=== PATIENT | female | born 1965 | race Caucasian/White ===

== ENCOUNTER 2019-04-09 01:58 | Emergency (ER) | payer OTHER, SELFPAY ==
[2019-04-09 01:59] VITALS: BP 220/109; PULSE 96; RESP 16; TEMP 36.3; O2SAT 100; BMI 30.4
[2019-04-09 02:02] VITALS: BP 208/118
--- NOTE | 2019-04-09 02:24 | CT_ITS ---
STUDY: CT BRAIN WITHOUT CONTRAST REASON FOR EXAM: Female, 53 years old. Headache, history of diabetes and migraine headaches. RADIATION DOSAGE (If Supplied By Facility): CTDIvol = ( 44.99 ) mGy, DLP = ( 796.11 ) mGycm TECHNIQUE: Transaxial CT imaging of the brain was performed without administration of intravenous contrast material. Individualized dose optimization techniques were used for this CT. COMPARISON: No relevant priors. FINDINGS: Normal soft tissue structures. Normal calvarium. Normal size ventricles and extra-axial spaces for the patient's age. Normal white matter tracts of the cerebral hemispheres. Normal basal ganglia and thalami. Normal brainstem. Normal cerebellum. There is no intracranial hemorrhage. There are no findings of an acute ischemic infarction. Normal visualized paranasal sinuses. CT/Brain/Head without Contrast IMPRESSION: Normal unenhanced CT scan of the brain. Specifically, no acute intracranial hemorrhage or space-occupying lesion. Electronically Signed: Sarahy Agudelo MD at 3:09 EST , Service support ,
--- NOTE | 2019-04-09 02:25 | ED.VIS.HA ---
History of Present Illness Chief Complaint: Headache Informant: Patient, Family Onset: Today Context: Sudden Timing: Continuous Quality: Similar Prior Headaches, Throbbing Current Severity: Severe Maximum Severity: Severe Associated Symptoms: Nausea, Blurred Vision, Photophobia. Negative for: Numbness, Tingling, Preceding Aura, Visual Loss Narrative: Patient is a 53-year-old female with history of migraine headaches and acid reflux presenting with headache. Patient states her headache started about an hour prior to arrival. She states that came on suddenly and hit her like a ton of bricks. She did not have her typical preceding aura. She had a similar migraine 2 days ago. Patient states she normally has a migraine every month or every other month. She took ibuprofen without any relief of her symptoms. She describes the pain as pounding and pressure in her head. She has associated light sensitivity but no vision changes. She denies any vomiting. She did have an episode of vomiting with her headache 2 days ago. She denies any chest pain, shortness of breath or difficulty breathing. She denies any fever or chills. She does have some neck pain associated with it. She denies any upper respiratory symptoms Patient states 10 days ago she was in [facility]. When she was there she had an exacerbation of her reflux. She states the pain was so bad at one point she passed out. She did not get this evaluated further. Patient states she had a similar episode about a year ago. She has not seen her primary care doctor in the last few months. She denies any other complaints at this time. Prior similar symptoms: Yes Recent Illness/Hospitalization: No Past Medical History - Allergies and Home Meds Allergies/Adverse Reactions: Allergies No Known Allergies Allergy (Verified 04/09/19 02:01) Primary Care Physician: Apanra Hartman MD [Primary Care Provider] - Past Medical History: - - GERD, diabetes, hyperlipidemia Surgical History: - - C-sections ?2 Lives: Spouse/ Significant Other Smoking Status: Current every day smoker - Family History Maternal Family History: Reports: No pertinent history Paternal Family History: Reports: No pertinent history Review of Systems General: Denies: Chills, Fever, Sweats Eyes: Denies: Visual changes - bilaterally, Diplopia ENT: Denies: Rhinorrhea, Sore throat Cardiovascular: Denies: Chest pain, Palpitations Respiratory: Denies: Dyspnea, Cough, Dyspnea on exertion Gastrointestinal: Reports: Nausea. Denies: Abdominal pain, Vomiting, Diarrhea, Melena, Hematochezia Genitourinary: Denies: Dysuria, Hematuria, Frequency Musculoskeletal: Reports: Neck pain. Denies: Back pain, Extremity Pain Skin: Denies: Rash, Wounds Neurological: Reports: Headache. Denies: Weakness, Numbness Physical Exam Vital Signs/Narrative: Vital Signs Temp Pulse Resp BP Pulse Ox 04/09/19 02:02 208/118 H 04/09/19 01:59 97.3 F L 96 16 220/109 H 100 Inital Vital Signs reviewed: Yes General: Well nourished, Well developed Head: NC, AT Eyes: Perrl, EOMI ENT: Moist mucous membranes, No rhinorrhea, TM's clear. Negative for: Nasal congestion, Sinus tenderness Neck: Supple, No Lymphadenopathy, No JVD, Nontender, No Meningismus, Paraspinal Tenderness - Bilateral Cardiovascular: Regular rate, Regular rhythm, No murmurs Respiratory: No distress, CTA bilaterally, Chest nontender Abdomen: Soft, Nontender, Nondistended, Normal bowel sounds Back: Nontender, Normal Inspection Extremities: Nontender, No edema Skin: Normal color, No rash Neuro: Alert, Oriented x3, Cranial nerves II-XII grossly intact, Normal Strength, Normal Sensation, Normal DTR, Normal Gait. Negative for: Abnormal Gait Psychological: Normal affect Diagnostic/Tx/Re-eval Clinical Impression(s) from Imaging Studies Brain CT 04/09/19 02:24 IMPRESSION: Normal unenhanced CT scan of the brain. Specifically, no acute intracranial hemorrhage or space-occupying lesion. Electronically Signed: Sarahy Agudelo MD at 3:09 EST , Service support , Laboratory Data 04/09/19 04/09/19 02:35 02:35 WBC 10.0 RBC 5.11 Hgb 16.3 H Hct 47.1 H MCV 92.2 MCH 31.9 MCHC 34.6 RDW Std Deviation 39.9 RDW Coeff of Reyes 11.8 Plt Count 273 MPV 9.6 Immature Gran % (Auto) 0.300 Neut % (Auto) 48.2 Lymph % (Auto) 41.5 H [place] % (Auto) 6.9 Eos % (Auto) 2.6 Baso % (Auto) 0.5 Absolute Neuts (auto) 4.8 Absolute Lymphs (auto) 4.13 Nucleated RBC % 0 Sodium 137 Potassium 3.4 L Chloride 104 Carbon Dioxide 23.0 Anion Gap 10 BUN 21 H Creatinine 0.73 Estim Creat Clear Calc 85.35 Est GFR (MDRD) Af Amer 109 Est GFR (MDRD) Non-Af 90 BUN/Creatinine Ratio 28.9 H Glucose 246 H Calcium 9.4 Total Bilirubin 0.30 AST 8 L ALT 29 Alkaline Phosphatase 79 Troponin I < 0.015 Total Protein 7.5 Albumin 4.0 Globulin 3.5 Albumin/Globulin Ratio 1.1 Lipase 215 - Medical Decision Making Patient is evaluated for headache. She appears nontoxic and in no acute distress. She does appear uncomfortable secondary to her headache. Patient is a normal neurologic exam. She does not have meningeal signs. Patient is initially given Compazine and Benadryl and fluids for her symptoms. CT of the brain is obtained as patient had sudden onset of her headache and did not have a classic aura. This is negative for any acute bleed or other acute intracranial process. Because her symptoms started an hour before arrival I do not think further LP is indicated to rule out subarachnoid hemorrhage. Patient was then given Toradol and another liter fluid after her CT is read as negative. Patient 10 days ago did have an episode of epigastric pain rating to her chest and feeling that she might pass out. Because of this I did check some baseline labs including troponin, CMP, lipase and CBC.CBC grossly normal. Patient is slightly hemoconcentrated. CMP remarkable for hyperglycemia with a glucose of 246. Patient has a normal anion gap. Troponin is normal. Normal lipase and normal liver enzymes. On reevaluation patient is significantly improved. Her blood pressure comes down slightly. She does not have JAQUELIN or physical exam findings consistent with hypertensive emergency. Patient was plan on following up with her primary care doctor so she will not be started on antihypertensives right now. She is counseled that she needs to discuss this with her PCP as she likely might need them in the near future. Patient is counseled on signs and symptoms requiring return to the emergency room. Patient verbalizes agreement and understand this plan. Patient discharged home in stable and improved condition. ED Disposition - Plan for ED Patient: Disposition: Home or Assisted Living Diagnosis: Headache, Hypertension Instructions: HEADACHE, Unspecified Referrals: Aparna Hartman MD [Primary Care Provider] - Additional Instructions: Please follow-up with your primary care doctor. Please discuss your elevated blood pressure as well as the increased frequency of your headaches. Continue to use heat for your neck. You can take either ibuprofen or Tylenol as needed for your headaches. Return to emergency room if you have worsening symptoms.
[2019-04-09] MEDS: DiphenhydrAMINE 50 MG/ML Syringe IV (02:39)
[2019-04-09] MEDS: proCHLORPERazine 10 MG/2 ML Vial IV (02:39)
[2019-04-09] MEDS: 0.9% Normal Saline 1,000 ML 999 ML IV (02:40)
[2019-04-09] MEDS: 0.9% Normal Saline 1,000 ML 1000 ML IV (02:40)
[2019-04-09 02:46] LABS: Absolute Lymphocyte Count 4.13 X10^3/uL (0.83-4.51); Absolute Neutrophil Count 4.8 X10^3/uL (2.0-7.7); Basophil# 0.05 X10^3/uL; Basophil% 0.5 % (0-1); Eosinophil# 0.26 X10^3/uL; Eosinophils% 2.6 % (0-5); Hematocrit 47.1 % (37-47); Hemoglobin 16.3 g/dL (12.0-15.0); Lymphocyte # 4.13 X10^3/ul (4.0); Lymphocyte % 41.5 % (19-41); Mean Corp Hgb Conc 34.6 g/dL (32-36); Mean Corpuscular Hgb 31.9 pg (27.0-32.0); Mean Corpuscular Volume 92.2 fL (81-99); Mean Platelet Vol. 9.6 fl (6.2-12.0); Monocyte# 0.69 X10^3/uL; Monocyte% 6.9 % (0-10); NRBC Flagged by Analyzer 0 % (0-5); Neutrophil % 48.2 % (47-70); Platelet Count 273 K/mm3 (150-450); RBC Distribution Width CV 11.8 % (11.6-14.6); RBC Distribution Width SD 39.9 fl (35.1-43.9); Red Blood Count 5.11 M/mm3 (4.2-5.4)
[2019-04-09 03:05] LABS: ALB/GLOB Ratio 1.1 RATIO (0.9-2.4); AST(SGOT) 8 U/L (15-37); Alanine Aminotransfer ALT/SGPT 29 U/L (13-56); Alkaline Phosphatase 79 U/L (45-117); Anion Gap 10 (5-15); BUN 21 mg/dL (7-18); BUN/Creat Ratio 28.9 RATIO (10-20); Calcium,Total 9.4 mg/dL (8.5-10.1); Chloride 104 mmol/L (98-107); Creatinine, Serum 0.73 mg/dL (0.55-1.02); EST Glomerular Filtration Rate 90 mL/min (>60); Est Glom Filt Rate - Afr Amer 109 mL/min (>60); Estimated Creatinine Clearance 85.35 ml/min; Globulin 3.5 g/dL (2.2-4.2); Glucose 246 mg/dL (74-106); Lipase 215 U/L (73-393); Potassium 3.4 mmol/L (3.5-5.1); Protein, Total 7.5 g/dL (6.4-8.2); Sodium Level 137 mmol/L (136-145)
[2019-04-09] MEDS: Ketorolac 15 MG/ML Vial IV (03:23)
[2019-04-09 03:58] VITALS: BP 195/97; PULSE 64; RESP 16; O2SAT 98
[2019-04-09 04:56] VITALS: BP 174/95; RESP 16
== END 2019-04-09 04:57 | disposition home or self-care (01) ==
PROVIDERS: Emergency Provider Emergency Medicine; Family Provider Internal Medicine; PCP Internal Medicine
DX: R51 Headache (principal); I10 Essential (primary) hypertension; E11.9 Type 2 diabetes mellitus without complications; K21.9 Gastro-esophageal reflux disease without esophagitis; E78.5 Hyperlipidemia, unspecified; F17.200 Nicotine dependence, unspecified, uncomplicated
CPT/HCPCS: 70450; 80053; 83690; 84484; 85025; 96361; 96374; 96375; 99283; J7030; A4216

== ENCOUNTER 2019-04-09 23:17 | Emergency (ER) | payer OTHER, SELFPAY ==
[2019-04-09 01:59] VITALS: BMI 30.4
[2019-04-09 23:18] VITALS: BP 207/111; PULSE 90; RESP 16; TEMP 36.8; O2SAT 100; BMI 29.5
--- NOTE | 2019-04-09 23:45 | ED.VIS.GEN ---
History of Present Illness Chief Complaint: Headache Informant: Patient Narrative: Stated she has a history of migraine headaches. They can be a couple times a month or they can be every few months. She is never seen a specialist. She came in the emergency department yesterday and had lab work and a CAT scan of her head for a migraine headache. She was treated for it with IV treatments. She stated her headache almost completely resolved. She went home and slept throughout the morning yesterday. She woke up this afternoon with a very mild limit lingering headache. This evening slowly started to increase in severity now she has a significant throbbing migraine headache again per patient. She has a frontal headache. She has some tightness in the back of her head as well in her upper neck. She has some mild nausea. No visual difficulties. Been trying Tylenol and ibuprofen today with minimal relief. Patient does have a history of elevated blood pressures on her last visit to her doctor 160 systolic however she does not have a history of hypertension. Yesterday she had a blood pressure of 200 systolic. This was monitored. She was discharged home and does not take blood pressure medication at this time. - Past Medical History (1) Chest pain Status: Acute (2) Headache Status: Inactive (3) Diabetes mellitus, type II Status: Chronic (4) Hiatal hernia Status: Chronic (5) Hyperlipidemia Status: Chronic (6) Hypertension Status: Inactive (7) Nicotine addiction Status: Chronic (8) Obesity (BMI 30.0-34.9) Status: Chronic (9) Gastroesophageal reflux disease Status: Suspected Past Medical History - Allergies and Home Meds Allergies/Adverse Reactions: Allergies No Known Allergies Allergy (Verified 04/09/19 23:21) Primary Care Physician: Aparna Hartman MD [Primary Care Provider] - Prior records reviewed: Yes Past Medical History: - - See problem list Surgical History: - - C-sections ?2 Lives: With Family Smoking Status: Current every day smoker Alcohol: None Drugs: None - Family History Maternal Family History: Reports: No pertinent history Paternal Family History: Reports: No pertinent history Review of Systems General: Denies: Chills, Fever, Sweats Eyes: Denies: Visual changes - bilaterally, Diplopia ENT: Denies: Rhinorrhea, Sore throat Cardiovascular: Denies: Chest pain, Palpitations Respiratory: Denies: Dyspnea, Cough, Dyspnea on exertion Gastrointestinal: Reports: Nausea. Denies: Abdominal pain, Vomiting, Diarrhea, Melena, Hematochezia Genitourinary: Denies: Dysuria, Hematuria, Frequency Musculoskeletal: Denies: Back pain, Extremity Pain Skin: Denies: Rash, Wounds Neurological: Reports: Headache. Denies: Weakness, Numbness Physical Exam Vital Signs/Narrative: Vital Signs Temp Pulse Resp BP Pulse Ox 04/09/19 23:18 98.3 F 90 16 207/111 H 100 General: Well nourished, Well developed, No Acute Distress Head: Normocephalic, Atraumatic Eyes: Perrl, EOMI ENT: Moist mucous membranes, No rhinorrhea Neck: Supple, Nontender Cardiovascular: Regular rate, Regular rhythm, No murmurs Respiratory: No distress, CTA bilaterally, Chest nontender Abdomen: Soft, Nontender, Nondistended, Normal bowel sounds Back: Nontender, Normal Inspection Extremities: Nontender, No edema Skin: Normal color, No rash Neurological: Alert, Oriented x3, Cranial nerves II-XII grossly intact, Normal Strength, Normal Sensation Psychological: Normal affect, Normal Mood Diagnostic/Tx/Re-eval - Medical Decision Making IV established and given IV fluids, Compazine, Toradol, Benadryl. Blood pressure monitored. On reevaluation the patient's headache is completely resolved resting comfortably. Blood pressure down to 130/80. At this time she will be given a prescription for Imitrex for home. She will follow-up with her family doctor and return if she worsens. I do not feel she needs repeat CT of her head. On think she has intracranial hemorrhage or subarachnoid hemorrhage. I feel she is has a repeat migraine. ED Disposition - Plan for ED Patient: Disposition: Home or Assisted Living Diagnosis: Migraine headache Instructions: ED, Migraine (Classical) Prescriptions: Sumatriptan Succinate [Imitrex] 50 - 100 mg PO .X1 PRN #15 tab Prescription Printed Referrals: Aparna Hartman MD [Primary Care Provider] -
[2019-04-09] MEDS: DiphenhydrAMINE 50 MG/ML Syringe IV (23:58)
[2019-04-09] MEDS: Ketorolac 30 MG/ML Syringe IV (23:59)
[2019-04-09] MEDS: proCHLORPERazine 10 MG/2 ML Vial IV (23:59)
[2019-04-10] MEDS: 0.9% Normal Saline 1,000 ML 999 ML IV (00:05)
[2019-04-10 00:11] VITALS: BP 162/97; PULSE 73; RESP 11; O2SAT 99
[2019-04-10 01:50] VITALS: BP 127/84; PULSE 65; RESP 20; O2SAT 96
== END 2019-04-10 02:28 | disposition home or self-care (01) ==
PROVIDERS: Emergency Provider Emergency Medicine; Family Provider Internal Medicine; PCP Internal Medicine
DX: G43.909 Migraine, unspecified, not intractable, without status migrainosus (principal); E11.9 Type 2 diabetes mellitus without complications; E66.9 Obesity, unspecified; E78.5 Hyperlipidemia, unspecified; K21.9 Gastro-esophageal reflux disease without esophagitis; K44.9 Diaphragmatic hernia without obstruction or gangrene; I10 Essential (primary) hypertension; F17.200 Nicotine dependence, unspecified, uncomplicated
CPT/HCPCS: 99285; J7030; A4216

== ENCOUNTER 2019-04-12 09:51 | Emergency (ER) | payer OTHER, SELFPAY ==
[2019-04-12 09:52] VITALS: BP 187/125; PULSE 93; RESP 15; TEMP 36.2; O2SAT 97; BMI 29.8
[2019-04-12] MEDS: Ketorolac 15 MG/ML Vial IV (10:34)
[2019-04-12] MEDS: DiphenhydrAMINE 50 MG/ML Syringe IV (10:34)
[2019-04-12] MEDS: 0.9% Normal Saline 1,000 ML 1000 ML IV (10:34)
[2019-04-12] MEDS: proCHLORPERazine 10 MG/2 ML Vial IV (10:34)
--- NOTE | 2019-04-12 10:35 | ED.VIS.GEN ---
History of Present Illness Informant: Patient, Significant Other Onset: Days - 3 days Context: Gradual Onset Timing: Continuous Quality: Throbbing Location: Front of the head Current Severity: Severe Maximum Severity: Severe Worsened by: Nothing Relieved by: nothing Associated Symptoms: Nausea Narrative: 53-year-old female history of type 2 diabetes on metformin and hyperlipidemia presents to the emergency department with headache. This is the patient's third visit to the emergency department in the last 3 days. Initially was seen in the emergency department for headache. Had a CT scan that was negative. Given a migraine cocktail. Was nearly started on antihypertensive but after being treated for her migraine blood pressure normalized and was discharged home without antihypertensives. She had her second visit a couple days ago and similar situation where initially her blood pressure was elevated on arrival and after treatment of her headache she felt better her blood pressure remained normal after treatment and she was discharged. She was then discharged after her second visit with Imitrex. She has been taking that since yesterday without improvement of her headache. Blood pressure is elevated on arrival. She has not been taking her blood pressure at home. She has never been on antihypertensives. Denies visual changes or loss of vision. Denies nausea or vomiting. Denies chest pain or shortness of breath. Denies difficulty with speech or ambulation. Denies neck pain. Denies lightheadedness or dizziness. Denies fevers or rash. Denies numbness tingling or weakness. Does have a history of migraines but states that she is not usually get them this frequently. Prior similar symptoms: Yes Recent Illness/Hospitalization: No <Chavo Woods - Last Filed: 04/12/19 13:02> <Ru Hubbard - Last Filed: 04/12/19 14:28> Chief Complaint: Headache Past Medical History Prior records reviewed: Yes Past Medical History: - - Type 2 diabetes mellitus, hyperlipidemia, migraines, GERD Surgical History: - - C-sections ?2 Lives: With Family Smoking Status: Former smoker Alcohol: Rare - Family History Maternal Family History: Reports: No pertinent history Paternal Family History: Reports: No pertinent history <Chavo Woods - Last Filed: 04/12/19 13:02> <Ru Hubbard - Last Filed: 04/12/19 14:28> - Allergies and Home Meds Allergies/Adverse Reactions: Allergies No Known Allergies Allergy (Verified 04/09/19 23:21) Primary Care Physician: Aparna Hartman MD [Primary Care Provider] - Review of Systems All systems negative except as indicated General: Denies: Chills, Fever, Malaise, Subjective, Sweats, Weight loss, - Eyes: Denies: Visual changes - left, Visual changes - right, Visual changes - bilaterally, Blurred vision - left, Blurred vision - right, Blurred Vision - bilaterally, Diplopia, -, - ENT: Denies: Bilateral ear pain, Left ear pain, Right ear pain, Rhinorrhea, Sore throat, -, - Cardiovascular: Denies: Chest pain, Palpitations, Heart racing, -, - Respiratory: Denies: Dyspnea, Cough, Sputum, Dyspnea on exertion, Orthopnea, Paroxysmal nocturnal dyspnea, -, - Gastrointestinal: Reports: Nausea. Denies: Abdominal pain, Vomiting, Diarrhea, Constipation, Melena, Hematochezia, -, - Genitourinary: Denies: Dysuria, Hematuria, Frequency, -, - Musculoskeletal: Denies: Myalgias, Arthralgias, Neck pain, Back pain, Swelling, Extremity Pain, -, - Neurological: Reports: Headache. Denies: Weakness, Parasthesia, Numbness, -, - Hematologic: Denies: Easy bruising, Easy bleeding <Chavo Woods Filed: 04/12/19 13:02> Physical Exam Vital Signs/Narrative: Vital Signs Temp Pulse Resp BP Pulse Ox 04/12/19 09:52 97.2 F L 93 15 187/125 H 97 Inital Vital Signs reviewed: Yes General: Well nourished, Well developed, No Acute Distress Head: Normocephalic, Atraumatic Eyes: Perrl, EOMI ENT: Moist mucous membranes Neck: Supple, Nontender. Negative for: No lymphadenopathy Cardiovascular: Regular rate, Regular rhythm Respiratory: No distress, CTA bilaterally, Chest nontender Abdomen: Soft, Nontender, Nondistended, Normal bowel sounds, No masses Back: Nontender, Normal Inspection Extremities: Nontender, No edema Skin: Normal color, No rash Neurological: Alert, Oriented x3, Cranial nerves II-XII grossly intact, Normal Strength, Normal Sensation, Normal Gait. Negative for: Left side facial droop, Right side facial droop Psychological: Normal affect <Chavo Woods Filed: 04/12/19 13:02> Vital Signs/Narrative: Vital Signs Temp Pulse Resp BP Pulse Ox 04/12/19 13:39 98.2 F 68 16 145/75 H 96 04/12/19 13:38 98.2 F 68 16 145/75 H 96 04/12/19 13:20 62 16 145/75 H 96 04/12/19 12:30 68 15 160/88 H 97 04/12/19 11:20 62 16 158/91 H 96 <Ru Hubbard - Last Filed: 04/12/19 14:28> Diagnostic/Tx/Re-eval - Medical Decision Making On arrival the patient's blood pressure was elevated at 215/125, it was repeated several minutes later and was 187/125. Patient's neurological exam was nonfocal. Because of the improvement of her blood pressure without treatment we did not give her any antihypertensives. Basic labs were obtained. These are unremarkable. Because the patient's headache worsened this morning at 1 AM and this is her third visit to the emergency department here in the last 3 days we did a CTA of the head and neck. Patient initially was apprehensive about this because her previous visit here a few days ago she did have a CT of her brain. However we discussed with her we are worried for aneurysm and other causes of bleeding and that is why we wanted to perform this test and she was agreeable. Radiologist Dr. Allen contacted me to inform me that the patient has a right frontal subarachnoid hemorrhage with no visualized aneurysm. On repeat evaluation I rechecked the patient's blood pressure and it is 160/88. I performed a repeat neurological exam. It remains nonfocal. Otherwise the patient's vital signs are stable. Patient was initially treated on arrival with Toradol Compazine and Benadryl and a liter of IV fluids. She is not on any anticoagulation therapy and again denies trauma. Patient request transfer to the [facility]. Dr Kang to accept and requested Cardene drip with a target systolic blood pressure 140. We will transfer the patient by helicopter to [facility] currently she is stable. - Critical Care Time Critical care time (excluding procedures): 30-74 minutes, Discussing w/Patient &/or Family/Payroll And Benefits Analyst, Discussing w/Consultants, Arranging Admission or Transfer <Chavo Woods - Last Filed: 04/12/19 13:02> - Medical Decision Making Patient was seen with the physician assistant to the director. This is her third visit for headaches. She had previous imaging which was unremarkable. She reports taking nicotine and also reports high blood pressure. She is not on blood thinners. Exam is unremarkable. Alert and oriented. Nonfocal exam. Patient was treated for migraines. She had improvement of her symptoms and blood pressure. Because of her continued headaches, I ordered a CTA of her head and neck. This showed a right frontal subarachnoid hemorrhage. Patient was reevaluated. She had no new or worsening symptoms. Blood pressure was 160/88. At her request, we contacted the [facility]. Patient was accepted for transfer. She was started on Cardene with a systolic blood pressure goal of 140. Patient was transferred in stable condition. <Ru Hubbard - Last Filed: 04/12/19 14:28> ED Disposition <Chavo Woods - Last Filed: 04/12/19 13:02> <Ru Hubbard - Last Filed: 04/12/19 14:28> - Plan for ED Patient: Disposition: [facility] - Main Diagnosis: Subarachnoid hemorrhage Referrals: Aparna Hartman MD [Primary Care Provider] -
[2019-04-12 10:38] LABS: Absolute Lymphocyte Count 2.85 X10^3/uL (0.83-4.51); Basophil# 0.04 X10^3/uL; Basophil% 0.3 % (0-1); Eosinophil# 0.14 X10^3/uL; Eosinophils% 1.1 % (0-5); Hematocrit 46.8 % (37-47); Hemoglobin 16.6 g/dL (12.0-15.0); Lymphocyte # 2.85 X10^3/ul (4.0); Lymphocyte % 22.7 % (19-41); Mean Corp Hgb Conc 35.5 g/dL (32-36); Mean Corpuscular Hgb 31.9 pg (27.0-32.0); Mean Platelet Vol. 9.6 fl (6.2-12.0); Monocyte# 0.52 X10^3/uL; Monocyte% 4.1 % (0-10); NRBC Flagged by Analyzer 0 % (0-5); Neutrophil # 8.99 X10^3/uL (2.7-7.7); Neutrophil % 71.5 % (47-70); Platelet Count 254 K/mm3 (150-450); RBC Distribution Width CV 11.7 % (11.6-14.6); RBC Distribution Width SD 38.8 fl (35.1-43.9); White Blood Count 12.6 K/mm3 (4.4-11.0)
[2019-04-12 10:48] LABS: Anion Gap 9 (5-15); BUN 11 mg/dL (7-18); BUN/Creat Ratio 13.4 RATIO (10-20); Chloride 104 mmol/L (98-107); Creatinine, Serum 0.82 mg/dL (0.55-1.02); EST Glomerular Filtration Rate 78 mL/min (>60); Est Glom Filt Rate - Afr Amer 94 mL/min (>60); Estimated Creatinine Clearance 75.98 ml/min; Glucose 254 mg/dL (74-106); Potassium 3.7 mmol/L (3.5-5.1); Sodium Level 137 mmol/L (136-145)
--- NOTE | 2019-04-12 11:14 | CT_ITS ---
STUDY: CTA HEAD AND NECK WITH CONTRAST REASON FOR EXAM: Female, 53 years old. Headache for 3 days RADIATION DOSAGE (If Supplied By Facility): CTDIvol = ( 26.91 ) mGy, DLP = ( 1544.97 ) mGycm TECHNIQUE: Noncontrasted head CT initially performed. CT angiography was performed with a multi-detector CT scanner. Data acquisition was obtained from the skull base through the vertex following intravenous administration of IV Isovue 370 100. MIP images were reconstructed from the axial data set. Post-processing of the angiographic images was performed, with multiplanar reformation and 3D reconstruction. Degree of stenosis (when present) measured utilizing NASCET criteria. Individualized dose optimization techniques were used for this CT. COMPARISON: No relevant priors. FINDINGS: Head CT: Ventricular system is normal for age. No masses, mass effect or shift of midline structures. Small focal area of subarachnoid hemorrhage involving the right frontal cerebral sulcus seen on image 36 of series 2, new since prior head CT of 04/09/2019. The visualized paranasal sinuses, orbits and mastoid air cells are unremarkable except for a small mucosal retention cyst of the left maxillary sinus. Extracranial scalp and calvarium are unremarkable. Normal bilateral petrous carotid arteries. Normal right cavernous carotid artery with a normal supraclinoid bifurcation. Normal left cavernous carotid artery with a normal supraclinoid bifurcation. Normal right A1 segments of the anterior cerebral artery. Normal left A1 segments of the anterior cerebral artery. Normal intact anterior communicating artery (ACOM). Normal bilateral A2 segments of the anterior cerebral arteries. Normal right M1 and M2 segments of the middle cerebral arteries, with a normal M1 bifurcation. Normal left M1 and M2 segments of the middle cerebral arteries, with a normal M1 bifurcation. Normal right posterior communicating artery (PCOM). Normal left posterior communicating artery (PCOM). Normal bilateral vertebral arteries. Normal basilar artery with a normal basilar bifurcation. The visualized bilateral superior cerebellar (SCA) arteries are normal. Normal bilateral P1, P2 and visualized P3 segments of the posterior cerebral arteries. There is no demonstrated aneurysm of the [place]. There is no demonstrated abnormality of the visualized brain. AORTIC ARCH: Normal visualized aortic arch. Normal origins of the brachiocephalic, left common carotid, and left subclavian arteries. RIGHT CAROTID ARTERIES: Normal right common carotid artery (CCA). Normal right common carotid bulb. Normal origin of the right internal carotid (ICA) artery without a hemodynamically significant stenosis. Normal visualized cervical portion of the right internal carotid artery. Normal origin of the right external carotid artery (ECA). LEFT CAROTID ARTERIES: Normal left common carotid artery (CCA). Normal left common carotid bulb. Normal origin of the left internal carotid (ICA) artery without a hemodynamically significant stenosis. Normal visualized cervical portion of the left internal carotid artery. Normal origin of the left external carotid artery (ECA). VERTEBRAL ARTERIES: Normal bilateral vertebral arteries. CT/CTA Head AND Neck W/ Contrast IMPRESSION: 1. Right frontal subarachnoid hemorrhage, new since 04/09/2019. 2. No intracranial aneurysm. 3. Normal CTA of the neck without evidence of aneurysm, hemodynamically significant stenosis or dissection. N.B. : The above information has been verbally conveyed by El Allen MD (Brooks) to ABILIO TALLEY, on 04/12/2019 12:41:17 (ET). Electronically Signed: El Allen MD (Brooks) at 12:45 EST , Service support ,
[2019-04-12 11:20] VITALS: BP 158/91; PULSE 62; RESP 16; O2SAT 96
[2019-04-12 12:30] VITALS: BP 160/88; PULSE 68; RESP 15; O2SAT 97
[2019-04-12 13:11] LABS: Prothrombin Time (Protime)PT. 13.3 SECONDS (11.7-14.9)
[2019-04-12 13:12] LABS: Partial Thromboplast Time 25.8 Seconds (24.1-36.2)
[2019-04-12 13:20] VITALS: BP 145/75; PULSE 62; RESP 16; O2SAT 96
[2019-04-12 13:38] VITALS: BP 145/75; PULSE 68; RESP 16; TEMP 36.8; O2SAT 96
[2019-04-12 13:39] VITALS: BP 145/75; PULSE 68; RESP 16; TEMP 36.8; O2SAT 96
== END 2019-04-12 14:00 | disposition short-term general hospital (02) ==
PROVIDERS: Emergency Provider Physician Assistant Medical; Family Provider Internal Medicine; PCP Internal Medicine
DX: I60.9 Nontraumatic subarachnoid hemorrhage, unspecified (principal); E11.9 Type 2 diabetes mellitus without complications; E78.5 Hyperlipidemia, unspecified; K21.9 Gastro-esophageal reflux disease without esophagitis; Z87.891 Personal history of nicotine dependence; Z79.84 Long term (current) use of oral hypoglycemic drugs
CPT/HCPCS: 70496; 70498; 80048; 85025; 85610; 85730; 96361; 96365; 96375; 99285; J7030; J7050; Q9967; A4216

== ENCOUNTER 2020-08-12 11:59 | Outpatient (RCR) | payer OTHER, SELFPAY | END 2020-10-25 23:59 | LOC: IMMUN 11:59 | PROVIDERS: PCP Internal Medicine; Visit Provider Family Medicine | DX: Z23 Encounter for immunization (principal) | CPT/HCPCS: 0001A; 0002A; 91300 ==

== ENCOUNTER 2020-11-23 21:36 | Emergency (ER) | payer OTHER, SELFPAY ==
[2020-11-23 21:38] VITALS: BP 162/94; PULSE 94; RESP 16; TEMP 36.4; O2SAT 98; BMI 28.7
[2020-11-23 21:40] VITALS: BP 162/94; PULSE 94; RESP 16; TEMP 36.4; O2SAT 98
[2020-11-23 22:14] LABS: Mucous, Urine 0 SEEN /hpf (<or=2+); Red Blood Cells-Urine 0 SEEN /hpf (0-5); Squamous Epithelial Cells - UA 0 SEEN /hpf (5-10)
[2020-11-23] MEDS: Smz/Tmp Ds Tablet 1 TABLET PO (22:16)
[2020-11-23 22:18] LABS: Color, Urine Amber (Yellow); Glucose, Dipstick 1000 mg/dl (Normal); Ketone-Dipstick Negative (Negative); Leukocyte Esterase-Dipstick 100 /ul (Negative); Nitrite-Dipstick Positive (Negative); Occult Blood-Urine 25 /ul (Negative); Protein-Dipstick Negative (Negative); Urine Clarity Clear (Clear); Urine Urobilinogen 4 mg/dl (Normal)
[2020-11-23 22:20] LABS: Bedside Glucose 315 mg/dL (70-110)
[2020-11-23] MEDS: Insulin Lispro 100 UNIT/ML INSULN.PEN 16 UNIT SC (22:22)
[2020-11-23 22:37] LABS: Urine Bilirubin Dipstick 3 mg/dL (Negative)
[2020-11-23 22:38] LABS: Bacteria 1+ /hpf (None Seen); White Blood Cells 5-10 SEEN /hpf (0-5)
--- NOTE | 2020-11-23 22:52 | EDS_ITS ---
HPI HPI - Female History of Present Illness Chief Complaint: Complaint Informant: patient Associated Symptoms Associated Symptoms: Positive for Dysuria, Frequency and Urgency; Negative for Hematuria Narrative Narrative: Patient with urinary symptoms that just started tonight gradually, continuing to worsen with every time she urinated. She did a home Azo urine dipstick test for infection, testing for leukocytes and nitrite, she states both were positive she did not bring the test results with her but showed me the kit. Subsequently she took Azo to help with the burning so now her urine is orange. She denies any fevers, abdominal pain, nausea, vomiting, back pain. Patient states she is a diabetic, she had a couple pieces of pizza prior to coming here, and her blood sugar was 360s at home. She states she regrettably forgets to take her Metformin sometimes, which is the only medication she is on for her type 2 diabetes. [facility] Medical History Diabetes HTN (hypertension) Home Medications metformin 500 mg PO BID 08/11/14 [History Last Taken 04/12/19] nicotine (polacrilex) 4 mg BC Q2H PRN PRN 04/12/19 [History Last Taken 04/11/19 1300] bupropion HCl 300 mg PO DAILY 11/23/20 [History Last Taken Unknown] lisinopril 20 mg PO DAILY 11/23/20 [History Last Taken Unknown] sulfamethoxazole-trimethoprim 1 tab PO BID #6 tablet 11/23/20 [Rx Last Taken Unknown] Allergy/AdvReac Type Severity Reaction Status Date / Time No Known Allergies Allergy Verified 11/23/20 21:41 Social History Smoking Status: Former smoker ROS ROS ED Constitutional Constitutional ED: Denies chills or fever(s) Eyes Eyes: Denies change in vision or diplopia ENT ENT ED: Denies rhinorrhea or sore throat Cardiovascular Cardiovascular: Denies chest pain or palpitations Respiratory/Chest Respiratory/Chest: Denies cough or dyspnea Gastrointestinal Gastrointestinal: Denies abdominal pain, diarrhea, nausea or vomiting Genitourinary Genitourinary ED: Reports as per HPI, dysuria, urinary frequency and urinary urgency; Denies hematuria Musculoskeletal Musculoskeletal: Denies back pain or neck pain Integumentary Denies abscess or rash Neurologic Neurologic: Denies headache(s), paresthesias or weakness Psychiatric Psychiatric: Reports anxiety; Denies suicidal thoughts EXAM Physical Exam Const Vital Signs: 11/23/20 21:38 11/23/20 21:40 Temperature 97.6 F L 97.6 F L Temperature Source Temporal Temporal Pulse Rate 94 94 Respiratory Rate 16 16 Blood Pressure 162/94 H 162/94 H Blood Pressure Mean 116 116 Pulse Ox 98 98 Oxygen Delivery Method Room Air Room Air Positive well nourished and well developed General Appearance ED: well developed and NAD HEENT Reports moist mucous membranes normocephalic and atraumatic Eyes PERRL and EOMs intact bilaterally Neck full ROM and supple Resp normal respiratory effort and clear to auscultation bilaterally Cardio regular rate, regular rhythm and no murmurs GI non-tender and non-distended Auscultation: normoactive bowel sounds Palpation: soft Back/Spine no CVA tenderness General Back: other FROM Extremity normal to inspection General Extremety ED: Negative for edema, pulses abnormal or tenderness General Extremity: Negative for edema or pulses abnormal Neuro oriented x3, CN's II-XII intact bilaterally and no sensory deficits noted Sensorium / Orientation: awake and alert Motor Exam: strength 5/5 throughout Psych mental status grossly normal, thought process normal and cooperative Mood & Affect: tearful Skin no rashes or lesions noted and no wounds MDM MDM MDM Narrative Medical decision making narrative: We did a fingerstick here her blood sugar is 315. I gave her a dose of insulin lispro for that. I encouraged her to try to remember to take her Metformin, we discussed ways that she can do this, and to follow-up with her doctor. Her A1c in the past was around 7 and the last time she had it checked it was 10. She states her doctor doubled the dose of Metformin. She does understand that without taking it consistently, it will be difficult for her doctor to make educated decisions about medication changes. Patient has been under a lot of stress lately; her has stage IV colon cancer and she states as of the last 6-12 months her life has revolved around caring for him and she admits that she has let herself go by the [place] with regards to her health. We discussed this at length as did nurses, we offered her contact information for the counseling center, we will treat her urine infection, she is not septic here and does not need any further work-up and I reassured her with regards to that. The positive nitrite is likely a false positive due to the Azo that she takes, or could be a true positive blood for these reasons a culture was sent. It is also seen that she is on lisinopril, and I think Bactrim 3-day course is the best treatment for her first line, there is a low risk of increased potassium but she has normal renal function on her last labs and she is not elderly so I think this risk is minimal and I discussed all that with her. Lab Data Attestation: I reviewed the patient's lab results. Labs: Laboratory Results - last 24 hr 11/23/20 11/23/20 21:45 22:14 Urine Color Mari Urine Clarity Clear Urine pH 6.0 Ur Specific [place] 1.010 Urine Protein Negative Urine Glucose (UA) 1000 H Urine Ketones Negative Urine Occult Blood 25 H Urine Nitrite Positive H Urine Bilirubin 3 H Urine Urobilinogen 4 H Ur Leukocyte Esterase 100 H Urine RBC 0 SEEN Urine WBC 5-10 SEEN Ur Squamous Epith Cells 0 SEEN Urine Bacteria 1+ Urine Mucus 0 SEEN POC Glucose 315 H Discharge Plan Triage Chief Complaint: Complaint ED Provider: Sylvain Cavanaugh Dx/Rx/DC Orders Clinical Impression: Acute cystitis, Hyperglycemia due to type 2 diabetes mellitus Instructions: Understanding Urinary Tract ..., ED Diabetic Hyperglycemia Prescriptions: New sulfamethoxazole-trimethoprim [sulfamethoxazole-trimethoprim] 1 TABLET tablet 1 tab PO BID Qty: 6 RF: 0 No Action metformin 500 MG tablet 500 mg PO BID RF: 0 nicotine (polacrilex) 4 MG gum 4 mg BC Q2H PRN PRN (Reason: Smoking Cessation) RF: 0 lisinopril 20 mg tablet 20 mg PO DAILY RF: 0 bupropion HCl 300 mg tablet extended release 24 hr 300 mg PO DAILY RF: 0 Primary Care Provider: Aparna Hartman Referrals: Aparna Hartman MD [Primary Care Provider] - Disposition Disposition: Home, Self Care
== END 2020-11-23 23:09 | disposition home or self-care (01) ==
LOC: ED 23:03
PROVIDERS: Emergency Provider Emergency Medicine; PCP Internal Medicine
DX: N30.00 Acute cystitis without hematuria (principal); E11.65 Type 2 diabetes mellitus with hyperglycemia; I10 Essential (primary) hypertension; Z79.84 Long term (current) use of oral hypoglycemic drugs; Z79.899 Other long term (current) drug therapy; Z91.14 Patient's other noncompliance with medication regimen; Z87.891 Personal history of nicotine dependence
CPT/HCPCS: 81001; 82962; 87077; 87086; 87088; 87186; 99283

== ENCOUNTER 2024-06-19 19:19 | Emergency (ER) | payer SELFPAY ==
[2024-06-19 19:20] VITALS: BP 124/86; PULSE 107; RESP 16; TEMP 36.9; O2SAT 99; BMI 27.5
--- NOTE | 2024-06-19 20:20 | EDS_ITS ---
HPI <JORGITO Marrero - Last Filed: 06/19/24 21:38> History of Present Illness Chief Complaint: Back Narrative Narrative: Patient is a 58-year-old female with no significant medical history who states he has not seen a physician in a while. Presenting to the emergency department for right sided thoracic back pain. Patient states 2 days ago she was moving a heavy piece of furniture from her living room to the garage. She states that she should he had someone help her but she did not. She states she made multiple turns and twist. Later that night, she started having this pain. She states that it is continually getting worse. When asked a big breath, she feels pulling in her right side. Having difficulty rotating and bending. PFSH <JORGITO Marrero - Last Filed: 06/19/24 21:38> [facility] Medical History (Updated 06/19/24 @ 21:35 by JORGITO Marrero) Subarachnoid hemorrhage Abnormal angiogram of head HTN (hypertension) Diabetes Home Medications ?Medication ?Instructions ?Recorded ?Last Taken ?Type metformin 500 mg tablet 500 mg PO BID 08/11/1404/12 History nicotine (polacrilex) 4 mg gum 4 mg BC Q2H PRN PRN Smo nunu 04/12/19 04/11/19 History Cessation 1300 bupropion HCl 300 mg 24 hr tablet, 300 mg PO DAILY 12/07 Unknown History extended release lisinopril 20 mg tablet 20 mg PO DAILY 11/23/20 Unkn own History sulfamethoxazole 800 1 tab PO BID #6 TABLETS 12/07 Unknown Rx mg-trimethoprim 160 mg tablet cyclobenzaprine 10 mg tablet 10 mg PO TID PRN Muscle S pasm #20 06/19/24 Unknown Rx TABLETS lidocaine 5 % topical patch 1 patch topical DAILY #15 ea 06/19/24 Unknown Rx (Lidoderm) naproxen 500 mg tablet (Naprosyn) 500 mg PO BID PRN pa in #20 tabs 06/19/24 Unknown Rx Allergy/AdvReac Type Severity Reaction Status Date / Time No Known Allergies Allergy Verified 06/19/24 19:23 Surgical History (Updated 06/19/24 @ 19:50 by Brenda Mar) Previous section Social History Smoking Status: Current every day smoker tobacco type: cigarettes ROS <JONEL MarreroC - Last Filed: 06/19/24 21:38> ROS ED ROS Narrative Constitutional: Negative for fever, chills, weight loss, weakness Eyes: Negative for vision loss, vision change, double vision ENT: Negative for any sore throat, ear pain, congestion Cardiovascular: Negative for any chest pain, tightness, palpitations Respiratory: Negative for any cough, sputum production, hemoptysis, dyspnea, dyspnea on exertion, orthopnea Gastrointestinal: Negative for any abdominal pain, nausea, vomiting, diarrhea, constipation, blood in stool, blood in vomit : Negative for any urinary frequency, dysuria, retention, blood in urine Muscle skeletal: Negative for any neck pain. Positive for right sided mid to upper back pain Neurological: Negative for any headache, syncope, dizziness Skin: Negative for any rashes, itching, abrasions, lacerations Psychiatric: Negative for any depression, anxiety, stress, suicidal ideation, homicidal ideation Hematologic: Negative for any excessive bruising, easy bleeding EXAM <JORGITO Marrero - Last Filed: 06/19/24 21:38> Physical Exam Narrative Exam Narrative: Vital signs reviewed. Respiratory: Lungs clear to auscultation bilaterally. No chest tenderness. Abdomen: Soft, nontender, nondistended. No abdominal bruit or pulsatile masses. No hepatosplenomegaly Extremities: No peripheral edema, no signs of gross trauma or deformity. Active full range of motion of all extremities. Neuro: Cranial nerves II through XII intact, no focal neurological deficits. Skin: Clean dry and intact with no rash, purpura, petechiae, vesicles or p ustules. Backs/flank: No CVA tenderness, no midline spinal tenderness, no deformity. Patient has pain just below the right shoulder blade, slightly around to the lateral ribs. Pain is point tender. Any sort of flexion or extension causes significant pain. Patient states it is a shooting pain that takes her breath away. Psych: Normal mood and affect. No SI, HI or acute psychosis. Const Vital Signs: 06/19/24 19:20 Temperature 98.5 F Temperature Source Oral Pulse Rate 107 H Respiratory Rate 16 Blood Pressure 124/86 H Blood Pressure Mean 98 Pulse Ox 99 Oxygen Delivery Method Room Air Positive well nourished and well developed General Appearance ED: well developed <Vic Mata MD - Last Filed: 06/19/24 21:46> Physical Exam Const Vital Signs: 06/19/24 19:20 Temperature 98.5 F Temperature Source Oral Pulse Rate 107 H Respiratory Rate 16 Blood Pressure 124/86 H Blood Pressure Mean 98 Pulse Ox 99 Oxygen Delivery Method Room Air [facility] <JORGITO Marrero - Last Filed: 06/19/24 21:38> [facility] Treatment and Re-Evaluation :: Differential diagnosis includes however is not limited to: Costochondritis, thoracic strain, rib contusion, community-acquired pneumonia, PE Patient appears generally well, vital signs are stable, patient is nontoxic- appearing. Presenting to the emergency department complaints of right sided back pain worse with movement, palpation. On my physical examination, this is consistent with muscle skeletal pain. Patient will receive a Lidoderm patch, IM Toradol, Norflex. Patient will need to be reevaluated. On reevaluation, the patient was feeling more improved. At this time, patient will be discharged home. I do believe this is muscle skeletal. Patiently placed on naproxen, cyclobenzaprine, as well as given Lidoderm patches. She instructed form gentle stretching, ice and heat. Was given strict return precautions, stable for discharge. <Vic Mata MD - Last Filed: 06/19/24 21:46> [facility] Narrative Medical decision making narrative: Dr. Mata: I have personally performed a face to face assessment of the patient and have reviewed the ADELINE Note. I performed a substantive portion of the visit including all aspects of the following. My jaffe findings include: History is right mid to low back pain after lifting heavy, long mattress. Pain worse with movement. Radiates upward as well. Exam is afebrile. Vital signs noted. Positive tenderness to palpation right paraspinal musculature mid back to low back, right. No vertebral point tenderness or bony step-off. Neurovascular intact bilateral upper and lower extremities. No crepitance. Medical Decision Making: Differential diagnosis includes but not limited to muscle strain. I have low suspicion for pneumothorax or necrotizing fasciitis. Pain is reproducible. I do not feel imaging is indicated. Analgesia in the form of anti-inflammatory and muscle relaxer with lidocaine patch. Improvement after analgesics. Follow-up primary care provider. Discharge. Other additions or changes: [None] History & Record Review Discussion w/independent historian: Patient Discharge Plan Triage Chief Complaint: Back ED Midlevel Provider: Nick Rodriguez ED Provider: Vic Mata Dx/Rx/DC Orders Clinical Impression: Acute thoracic myofascial strain Instructions: ED Thoracic Spine Strain, ED Chest Wall Strain Prescriptions: New naproxen [Naprosyn] 500 mg tablet 500 mg PO BID PRN (Reason: pain) Qty: 20 0RF lidocaine [Lidoderm] 5 % adhesive patch,medicated 1 patch topical DAILY Qty: 15 0RF Rx Instructions: leave on most painful area for up to 12 hrs cyclobenzaprine 10 mg tablet 10 mg PO TID PRN (Reason: Muscle Spasm) Qty: 20 0RF No Action metformin 500 MG tablet 500 mg PO BID Patient Comments: diabetic medication nicotine (polacrilex) 4 MG gum 4 mg BC Q2H PRN PRN (Reason: Smoking Cessation) lisinopril 20 mg tablet 20 mg PO DAILY bupropion HCl 300 mg tablet extended release 24 hr 300 mg PO DAILY sulfamethoxazole-trimethoprim [sulfamethoxazole-trimethoprim] 1 TABLET tablet 1 tab PO BID Qty: 6 0RF Primary Care Provider: EVERARDO GREEN Referrals: EVERARDO GREEN [facility] [Primary Care Provider] - Activity Restrictions/Additional Instructions: You are being diagnosed with a thoracic strain. You be given naproxen twice a day this is an anti-inflammatory, Lidoderm patch you may place on your body where the pain is. The cyclobenzaprine is a muscle relaxer, you take this as needed, it can make you tired. If you need something more for pain, you may take Tylenol 1000 mg. Print Language: Palauan Disposition Disposition: Home, Self Care
[2024-06-19] MEDS: Orphenadrine 60 MG/2 ML Ampul IM (20:21)
[2024-06-19] MEDS: Lidocaine 5% Patch 1 PATCH TOPICAL (20:21)
[2024-06-19] MEDS: Ketorolac 30 MG/ML Syringe IM (20:21)
[2024-06-19 21:42] VITALS: BP 123/86; PULSE 75; RESP 18; TEMP 36.3; O2SAT 97
== END 2024-06-19 21:47 | disposition home or self-care (01) ==
PROVIDERS: Emergency Provider Emergency Medicine; PCP Nurse Practitioner; Visit Provider Emergency Medicine
DX: S29.019A Strain of muscle and tendon of unspecified wall of thorax, initial encounter (principal); E11.9 Type 2 diabetes mellitus without complications; I10 Essential (primary) hypertension; X50.0XXA Overexertion from strenuous movement or load, initial encounter; F17.210 Nicotine dependence, cigarettes, uncomplicated
CPT/HCPCS: 96372; 99284